=== PATIENT | male | born 1995 | race Caucasian/White ===

== ENCOUNTER 2017-05-27 22:53 | Emergency (ER) | payer SELFPAY ==
[~2017-05-27] VITALS: Ht 162.6 cm; Wt 68.0 kg
[2017-05-27 22:57] VITALS: BP 120/78; PULSE 124; RESP 16; TEMP 98.4; O2SAT 98
[2017-05-27] MEDS ORDERED: METF850T PO (23:07)
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
[2017-05-27] MEDS ORDERED: IOHEXOL 350 MG/ML 10 ML VIAL (for RAD DIAG) IVCONTRAST ONE (23:40)
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
[2017-05-28 00:58] VITALS: BP 127/71; PULSE 115; RESP 20; O2SAT 97
[2017-05-28 01:50] VITALS: BP 127/71
[2017-05-28] MEDS ORDERED: IBUP-232 PO (01:55)
[2017-05-28] MEDS ORDERED: MORPHINE SULFATE 4 MG/ML INJ IV PUSH ONE (02:00)
[2017-05-28] MEDS ORDERED: SODIUM CHLOR 0.9% 1000 ML INJ 1,000 ML IV ONE (02:00)
[2017-05-28 02:36] VITALS: BP 122/79; TEMP 98.3
== END 2017-05-28 03:01 | disposition home or self-care (01) ==
LOC: NEPE 22:53
DX: T14.90XD Injury, unspecified, subsequent encounter (principal); F17.200 Nicotine dependence, unspecified, uncomplicated; E11.9 Type 2 diabetes mellitus without complications; X58.XXXD Exposure to other specified factors, subsequent encounter
CPT/HCPCS: 71260; 96374; 99285; J2270; J7030; Q9967